=== PATIENT | female | born 1975 | race Caucasian/White ===

== ENCOUNTER 2017-05-26 13:45 | Inpatient (IN) | payer OTHER ==
[~2017-05-26] VITALS: Ht 160 cm; Wt 83.0 kg
[2017-05-26] MEDS ORDERED: ZYRTEC10 M2 (16:32)
== END 2017-05-31 13:53 | DRG 743 ==
LOC: SURH 05-29 03:45 → O/R 05-29 06:20 → OB/GYN 05-29 06:20 → SURH 05-29 13:45 → OB/GYN 05-31 13:53
PROVIDERS: Obstetrics & Gynecology Gynecologic Oncology
PROC: 0DNW0ZZ Release Peritoneum, Open Approach (ICD-10-PCS; 2017-05-29)
PROC: 0UT Female Reproductive System, Resection (ICD-10-PCS; 2017-05-29)
PROC: 0UB00ZZ Excision of Right Ovary, Open Approach (ICD-10-PCS; principal; 2017-05-29 03:45)
DX: N83.11 Corpus luteum cyst of right ovary (principal); N83.291 Other ovarian cyst, right side; N80.1 Endometriosis of ovary

== ENCOUNTER 2017-12-15 07:27 | Outpatient (CLI) | payer OTHER ==
[~2017-12-15 07:27] MED LIST: ZYRTEC10 M2
== END 2017-12-15 07:43 | disposition home or self-care (01) ==
LOC: NUCLEAR 07:27
DX: E05.90 Thyrotoxicosis, unspecified without thyrotoxic crisis or storm (principal)
CPT/HCPCS: 78012; A9531

== ENCOUNTER 2017-12-16 08:19 | Outpatient (CLI) | payer OTHER | END 2017-12-16 08:32 | disposition home or self-care (01) | LOC: NUCLEAR 08:19 | DX: E05.90 Thyrotoxicosis, unspecified without thyrotoxic crisis or storm (principal) | CPT/HCPCS: 78013; A9512 ==

== ENCOUNTER 2019-01-26 08:26 | Outpatient (CLI) | payer OTHER | END 2019-01-26 09:00 | disposition home or self-care (01) | LOC: NUCLEAR 08:26 | DX: E05.90 Thyrotoxicosis, unspecified without thyrotoxic crisis or storm (principal); E04.9 Nontoxic goiter, unspecified | CPT/HCPCS: 78012; A9531 ==

== ENCOUNTER 2019-01-27 08:54 | Outpatient (CLI) | payer OTHER | END 2019-01-27 09:30 | disposition home or self-care (01) | LOC: NUCLEAR 08:54 | DX: E05.90 Thyrotoxicosis, unspecified without thyrotoxic crisis or storm (principal); E04.1 Nontoxic single thyroid nodule | CPT/HCPCS: 78013; A9512 ==

== ENCOUNTER → 2019-02-22 | Outpatient (CLI) | payer OTHER | END | disposition home or self-care (01) | LOC: NUCLEAR 08:00 | DX: E04.9 Nontoxic goiter, unspecified (principal) | CPT/HCPCS: 79005; A9517 ==

== ENCOUNTER 2019-12-09 11:45 | Inpatient (IN) | payer OTHER ==
[~2019-12-09] VITALS: Ht 160 cm; Wt 93.0 kg
[2019-12-09] MEDS ORDERED: TAPAZOLE5 M1 PO (14:25)
[2019-12-09] MEDS ORDERED: TAPAZOLE10 MG (14:26)
[2019-12-16] MEDS ORDERED: VITAMIN E400 UNI5 (08:39)
[2019-12-16] MEDS ORDERED: GLYCOPYRROLATE2 MG (08:39)
[2019-12-16] MEDS ORDERED: METHIMAZOLE10 MG ×2 (08:40→08:43)
== END 2019-12-21 10:44 | disposition home or self-care (01) | DRG 734 ==
LOC: O/R 12-16 05:00 → OB/GYN 12-16 05:00
PROVIDERS: ADMIT Obstetrics & Gynecology Gynecologic Oncology; ATTEND Obstetrics & Gynecology Gynecologic Oncology
PROC: 0UT70ZZ Resection of Bilateral Fallopian Tubes, Open Approach (ICD-10-PCS; 2019-12-16)
PROC: 0UT20ZZ Resection of Bilateral Ovaries, Open Approach (ICD-10-PCS; 2019-12-16)
PROC: 0UT10ZZ Resection of Left Ovary, Open Approach (ICD-10-PCS; 2019-12-16)
PROC: 0TN70ZZ Release Left Ureter, Open Approach (ICD-10-PCS; 2019-12-16)
PROC: 0TN60ZZ Release Right Ureter, Open Approach (ICD-10-PCS; 2019-12-16)
PROC: 07TC0ZZ Resection of Pelvis Lymphatic, Open Approach (ICD-10-PCS; principal; 2019-12-16 07:00)
DX: N80.2 Endometriosis of fallopian tube (principal); N13.8 Other obstructive and reflux uropathy; N80.1 Endometriosis of ovary; N83.291 Other ovarian cyst, right side; N83.12 Corpus luteum cyst of left ovary; Z20.828 Contact with and (suspected) exposure to other viral communicable diseases; F43.22 Adjustment disorder with anxiety

== ENCOUNTER 2019-12-22 01:33 | Inpatient (IN) | payer OTHER ==
[~2019-12-22] VITALS: Ht 170.2 cm; Wt 90.7 kg
[~2019-12-22 01:33] MED LIST changes: +GLYCOPYRROLATE2 MG; +METHIMAZOLE10 MG; +TAPAZOLE10 MG; +TAPAZOLE5 M1 PO; +VITAMIN E400 UNI5
[2019-12-24] MEDS ORDERED: VITAMIN E400 UNI5 PO (11:55)
[2019-12-24] MEDS ORDERED: GLYCOPYRROLATE2 MG PO (11:55)
[2020-01-11] MEDS ORDERED: PROTEINEX-18 LI30 ML NGT (12:47)
[2020-01-11] MEDS ORDERED: INTESTINEX680 M1 PO (12:47)
== END 2020-01-11 14:26 | disposition home or self-care (01) | DRG 857 ==
LOC: ER 01:33 → ICU 09:12 → SEC-K 09:12 → OB/GYN 09:12 → SURH 09:12 → OB/GYN 16:49 → O/R 12-23 14:47 → ICU 12-24 19:09 → SURH 01-01 16:01
PROVIDERS: Surgery; ADMIT Internal Medicine Geriatric Medicine; ATTEND Internal Medicine Geriatric Medicine
PROC: 4A033R1 Measurement of Arterial Saturation, Peripheral, Percutaneous Approach (ICD-10-PCS; 2019-12-22)
PROC: 2W13X6Z Compression of Abdominal Wall using Pressure Dressing (ICD-10-PCS; 2019-12-22)
PROC: BW21ZZZ Computerized Tomography (CT Scan) of Abdomen and Pelvis (ICD-10-PCS; 2019-12-22)
PROC: 0W9F0ZZ Drainage of Abdominal Wall, Open Approach (ICD-10-PCS; 2019-12-23)
PROC: 0JB80ZZ Excision of Abdomen Subcutaneous Tissue and Fascia, Open Approach (ICD-10-PCS; 2019-12-23)
PROC: 0JB80ZZ Excision of Abdomen Subcutaneous Tissue and Fascia, Open Approach (ICD-10-PCS; 2019-12-23)
PROC: 02HV33Z Insertion of Infusion Device into Superior Vena Cava, Percutaneous Approach (ICD-10-PCS; 2019-12-23)
PROC: 0DNW0ZZ Release Peritoneum, Open Approach (ICD-10-PCS; principal; 2019-12-23 13:00)
PROC: 0DTH0ZZ Resection of Cecum, Open Approach (ICD-10-PCS; 2019-12-30)
PROC: BW21YZZ Computerized Tomography (CT Scan) of Abdomen and Pelvis using Other Contrast (ICD-10-PCS; 2020-01-04)
DX: T81.43XA Infection following a procedure, organ and space surgical site, initial encounter (principal); J98.11 Atelectasis; J95.89 Other postprocedural complications and disorders of respiratory system, not elsewhere classified; K56.7 Ileus, unspecified; L02.211 Cutaneous abscess of abdominal wall; I96 Gangrene, not elsewhere classified; B37.89 Other sites of candidiasis; K63.2 Fistula of intestine; T81.44XA Sepsis following a procedure, initial encounter; D64.9 Anemia, unspecified; B96.29 Other Escherichia coli [E. coli] as the cause of diseases classified elsewhere; E05.80 Other thyrotoxicosis without thyrotoxic crisis or storm; L76.82 Other postprocedural complications of skin and subcutaneous tissue; K66.0 Peritoneal adhesions (postprocedural) (postinfection); Y83.8 Other surgical procedures as the cause of abnormal reaction of the patient, or of later complication, without mention of misadventure at the time of the procedure; Z20.828 Contact with and (suspected) exposure to other viral communicable diseases; F43.23 Adjustment disorder with mixed anxiety and depressed mood

== ENCOUNTER 2021-11-08 00:52 | Emergency (ER) | payer OTHER ==
[~2021-11-08] VITALS: Ht 157.5 cm; Wt 88.5 kg
[~2021-11-08 00:52] MED LIST changes: +GLYCOPYRROLATE2 MG PO; +INTESTINEX680 M1 PO; +PROTEINEX-18 LI30 ML NGT; +VITAMIN E400 UNI5 PO
[2021-11-08] MEDS ORDERED: PHENAGIL TABLE1 EACH PO (05:38)
== END 2021-11-08 05:45 ==
LOC: ER 00:52
DX: J06.9 Acute upper respiratory infection, unspecified (principal); M54.9 Dorsalgia, unspecified; R50.9 Fever, unspecified; Z20.818 Contact with and (suspected) exposure to other bacterial communicable diseases

== ENCOUNTER 2022-03-19 16:53 | Emergency (ER) | payer OTHER ==
[~2022-03-19] VITALS: Ht 160 cm; Wt 80.7 kg
[~2022-03-19 16:53] MED LIST changes: +PHENAGIL TABLE1 EACH PO
[2022-03-19] MEDS ORDERED: ZESTRIL2.5 MG (17:38)
[2022-03-19] MEDS ORDERED: QUESTRAN LIGHT210 GM (17:39)
[2022-03-19] MEDS ORDERED: DIALYVITE TABL1 EACH (17:39)
[2022-03-19] MEDS ORDERED: WELLBUTRIN SR150 MG (17:39)
[2022-03-19] MEDS ORDERED: COSOPT PF EYE1 EACH (17:40)
== END 2022-03-19 21:46 | disposition home or self-care (01) ==
LOC: ER 16:53
DX: K52.9 Noninfective gastroenteritis and colitis, unspecified (principal); I10 Essential (primary) hypertension

== ENCOUNTER 2023-02-28 03:30 | Emergency (ER) | payer OTHER ==
[~2023-02-28] VITALS: Ht 160 cm; Wt 75.3 kg
[~2023-02-28 03:30] MED LIST changes: +COSOPT PF EYE1 EACH; +DIALYVITE TABL1 EACH; +QUESTRAN LIGHT210 GM; +WELLBUTRIN SR150 MG; +ZESTRIL2.5 MG
[2023-02-28] MEDS ORDERED: PROTONIX40 MG (03:38)
[2023-02-28] MEDS ORDERED: PEPCID AC10 MG (03:38)
[2023-02-28 05:02] LABS: HEMATOCRIT 37.5 % (36.0-45.00); HEMOGLOBIN 12.7 g/dL (12.0-15.00); MEAN CELL VOLUME 88.6 fL (80.00-100.00); MEAN CORPUSCULAR HGB CONC 33.9 g/dl (32.0-36.0); PLATELET COUNT 169 K/uL (150-450); RED BLOOD COUNT 4.23 M/uL (4.00-6.00); RED CELL DISTRIBUTION WIDTH 13.2 % (11.5-14.5)
[2023-02-28 05:17] LABS: PH,URINE 5.5 (5.0-8.0); URINE APPEARANCE Clear; URINE BILIRRUBIN Negative (NEGATIVE); URINE BLOOD Negative; URINE COLOR Yellow; URINE GLUCOSE Negative (NEGATIVE); URINE LEUKOCYTE Small; URINE NITRATE Negative; URINE PROTEIN Negative (NEGATIVE); URINE UROBILINOGEN 0.2 E.U./dl
[2023-02-28 05:20] LABS: URINE BACTERIA 88.1 uL (0.0-1933); URINE EPITHELIAL CELLS 6.1 uL (0.0-38.8); URINE WBC 24.7 uL (0.0-23.2)
[2023-02-28 05:21] LABS: INR 1.02; PARTIAL THROMBOPLASTIN TIME 27.8 SECONDS (22.0-34.0); PROTHROMBIN TIME 10.7 SECONDS (9.0-11.5)
[2023-02-28 05:27] LABS: BILIRUBIN TOTAL 1.47 mg/dL (0.3-1.2); BILIRUBIN,CONJUGATED 0.31 mg/dL (0.0-0.2); BILIRUBIN,UNCONJUGATED 1.16 mg/dL (0.0-0.6); CALCIUM 9.1 mg/dL (8.5-10.1); CREATININE SERUM 0.96 mg/dL (0.55-1.02); GFR 61.77; GLOBULINA 2.7 G/DL (2.4-3.5); POTASSIUM 3.35 mEq/L (3.5-5.1); TOTAL PROTEIN 6.7 gm/dL (6.4-8.2)
[2023-02-28 05:27] LABS: URINE RBC 1.7 uL (0.0-20.8)
== END 2023-02-28 14:28 | disposition home or self-care (01) ==
LOC: ER 03:31
PROVIDERS: General Practice
DX: K57.30 Diverticulosis of large intestine without perforation or abscess without bleeding (principal); I10 Essential (primary) hypertension

== ENCOUNTER 2023-09-12 10:05 | Outpatient (CLI) | payer OTHER ==
[~2023-09-12 10:05] MED LIST changes: +PEPCID AC10 MG; +PROTONIX40 MG
[2023-09-12 11:20] LABS: HEMATOCRIT 34.6 % (36.0-45.00); HEMOGLOBIN 12.2 g/dL (12.0-15.00); MEAN CELL VOLUME 87.6 fL (80.00-100.00); MEAN CORPUSCULAR HEMOGLOBIN 30.7 pg (27.00-32.0); MEAN CORPUSCULAR HGB CONC 35.1 g/dl (32.0-36.0); PLATELET COUNT 155 K/uL (150-450); RED BLOOD COUNT 3.95 M/uL (4.00-6.00); RED CELL DISTRIBUTION WIDTH 13.4 % (11.5-14.5)
[2023-09-12 12:17] LABS: % SATURACION 27.5 % (15-50); BILIRUBIN TOTAL 1.53 mg/dL (0.3-1.2); CREATININE SERUM 0.89 mg/dL (0.55-1.02); FERRITIN 65.7 NG/ML (8-252); GFR 67.41; GLOBULINA 2.6 G/DL (2.4-3.5); POTASSIUM 3.64 mEq/L (3.5-5.1); T4 FREE 0.95 NG/ML (0.76-1.46); TOTAL PROTEIN 6.6 gm/dL (6.4-8.2)
[2023-09-12 12:23] LABS: TSH 9.46 uIU/mL (0.358-3.74)
[2023-09-12 12:31] LABS: FOLIC ACID > 20.00 ng/ml (4.78-20)
[2023-09-13 09:11] LABS: CA 125 4.7 U/mL (0.0-38.1); CA 15-3 16.9 U/mL (0.0-25.0); CA 19-9 12 U/mL (0-35)
[2023-09-16 12:47] LABS: MANUAL PLATELET COUNT 386
[2023-09-16 12:48] LABS: PLATELET ESTIMATE NORMAL (NORMAL)
[2023-09-17 09:57] LABS: PARIETAL CELL ANTIBODIES 2.2 Units (0.0-20.0)
== END 2023-09-12 10:30 | disposition home or self-care (01) ==
LOC: CIR.AMB 10:05 → LAB 10:05 → CIR.AMB 10:30
PROVIDERS: ATTEND Internal Medicine Hematology & Oncology
DX: D50.8 Other iron deficiency anemias (principal); E05.00 Thyrotoxicosis with diffuse goiter without thyrotoxic crisis or storm; N80.00 Endometriosis of the uterus, unspecified; F33.9 Major depressive disorder, recurrent, unspecified; K57.30 Diverticulosis of large intestine without perforation or abscess without bleeding; R79.9 Abnormal finding of blood chemistry, unspecified; I10 Essential (primary) hypertension; R74.02 Elevation of levels of lactic acid dehydrogenase [LDH]; K76.89 Other specified diseases of liver; D51.1 Vitamin B12 deficiency anemia due to selective vitamin B12 malabsorption with proteinuria; D51.0 Vitamin B12 deficiency anemia due to intrinsic factor deficiency; E03.8 Other specified hypothyroidism; E06.3 Autoimmune thyroiditis; R97.8 Other abnormal tumor markers; C56.9 Malignant neoplasm of unspecified ovary; C50.919 Malignant neoplasm of unspecified site of unspecified female breast

== ENCOUNTER 2023-10-23 05:50 | Day surgery (SDC) | payer OTHER ==
[~2023-10-23 05:50] MED LIST changes: +ALLEGRA ALLERG180 MG PO; +CLIMARA1 EAC2; +CLONAZEPAM0.5 MG; +TIROSINT50 MCG
[2023-10-23] MEDS ORDERED: POVIDONE-IODINE 118 ML BOTT TOP ONE (08:00)
[2023-10-23] MEDS ORDERED: KETOROLAC TROMETHAMINE 30 MG VIAL IV ONE (08:30)
== END 2023-10-23 13:40 | disposition home or self-care (01) ==
LOC: CIR.AMB 05:50
PROVIDERS: ATTEND Obstetrics & Gynecology
DX: N84.0 Polyp of corpus uteri (principal); D25.0 Submucous leiomyoma of uterus; N95.0 Postmenopausal bleeding; E03.9 Hypothyroidism, unspecified

== ENCOUNTER 2024-07-15 21:50 | Emergency (ER) | payer OTHER ==
[~2024-07-15] VITALS: Ht 160 cm; Wt 68.0 kg
[2024-07-15] MEDS ORDERED: CIPRO250 MG (22:21)
[2024-07-15] MEDS ORDERED: METRONIDAZOLE45 GM (22:22)
[2024-07-15] MEDS ORDERED: 8HR ARTHRITIS650 MG (22:23)
[2024-07-15] MEDS ORDERED: FLUCONAZOLE150 MG PO (22:23)
[2024-07-15] MEDS ORDERED: DICY20TA PO (22:23)
[2024-07-15] MEDS ORDERED: FAMOTIDINE/PF 20 MG in 0.9 % SODIUM CHLORIDE 8 ML IV PUSH STA (22:38)
[2024-07-15] MEDS ORDERED: KETOROLAC TROMETHAMINE 30 MG VIAL ONE (22:44)
[2024-07-15] MEDS ORDERED: KETOROLAC TROMETHAMINE 30 MG VIAL IV ONE (22:45)
[2024-07-15] MEDS ORDERED: FAMOTIDINE/PF 20 MG/2 ML VIAL ONE (22:45)
[2024-07-15 23:25] LABS: HEMATOCRIT 41.4 % (36.0-45.00); HEMOGLOBIN 14.5 g/dL (12.0-15.00); MEAN CORPUSCULAR HEMOGLOBIN 30.4 pg (27.00-32.0); PLATELET COUNT 184 K/uL (150-450); RED BLOOD COUNT 4.75 M/uL (4.00-6.00); RED CELL DISTRIBUTION WIDTH 13.4 % (11.5-14.5)
[2024-07-15 23:50] LABS: ALBUMIN 5.1 gm/dL (3.4-5.0); BILIRUBIN TOTAL 2.14 mg/dL (0.3-1.2); CALCIUM 10.3 mg/dL (8.5-10.1); CREATININE SERUM 0.94 mg/dL (0.55-1.02); GFR 63.03; POTASSIUM 3.95 mEq/L (3.5-5.1); TOTAL PROTEIN 8.1 gm/dL (6.4-8.2)
[2024-07-16 00:32] LABS: PH,URINE 5.5 (5.0-8.0); URINE APPEARANCE Clear; URINE BILIRRUBIN Negative (NEGATIVE); URINE BLOOD Negative; URINE COLOR Yellow; URINE GLUCOSE Negative (NEGATIVE); URINE KETONE Negative (NEGATIVE); URINE LEUKOCYTE Negative; URINE NITRATE Negative; URINE PROTEIN Negative (NEGATIVE); URINE UROBILINOGEN 0.2 E.U./dl
[2024-07-16 00:35] LABS: URINE BACTERIA 2.4 uL (0.0-1933); URINE CAST 0.29 uL (0.0-1.40); URINE EPITHELIAL CELLS 1.1 uL (0.0-38.8); URINE RBC 0.7 uL (0.0-20.8); URINE WBC 0.3 uL (0.0-23.2)
[2024-07-16] MEDS ORDERED: DOLOGESIC-DF 51 EACH PO (01:55)
[2024-07-16] MEDS ORDERED: LEVSIN/SL0.125 MG SL (01:55)
== END 2024-07-16 03:13 ==
LOC: ER 21:51
PROVIDERS: General Practice
DX: R10.32 Left lower quadrant pain (principal); K57.32 Diverticulitis of large intestine without perforation or abscess without bleeding; E03.8 Other specified hypothyroidism; M54.9 Dorsalgia, unspecified